=== PATIENT | male | born 1975 | race Caucasian/White ===

== ENCOUNTER 2017-02-21 13:36 | Emergency (ER) | payer OTHER ==
[~2017-02-21] VITALS: Ht 182.9 cm; Wt 87.0 kg
[2017-02-21 13:41] VITALS: Ht 182.9 cm; Wt 87.0 kg
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
[2017-02-21] MEDS ORDERED: SILVER SULFADIAZINE 1% 25 GM CR TOP ONE (14:30)
== END 2017-02-21 14:38 | disposition home or self-care (01) ==
LOC: E/R 13:36
DX: T20.17XA Burn of first degree of neck, initial encounter (principal); R40.2142 Coma scale, eyes open, spontaneous, at arrival to emergency department; R40.2252 Coma scale, best verbal response, oriented, at arrival to emergency department; R40.2362 Coma scale, best motor response, obeys commands, at arrival to emergency department; T22.131A Burn of first degree of right upper arm, initial encounter; X14.1XXA Other contact with hot air and other hot gases, initial encounter; Y92.9 Unspecified place or not applicable
CPT/HCPCS: 99283